=== PATIENT | female | born 1965 | race Caucasian/White ===

== ENCOUNTER → 2017-02-20 | Outpatient (CLI) | payer OTHER ==
--- NOTE | 2017-02-20 14:27 | MM ---
Reason for exam: clinical finding. History: Benign cyst aspiration of both breasts. Indicated problem(s): lump or thickening in the right breast. Physical Findings: Nurse Summary: 2cm nodule in the right breast at 10 o'clock (nurse quang). MG Diagnostic Mammo w CAD ELVI Bilateral CC and MLO view(s) were taken. LM, spot compression MLO, and spot compression CC view(s) were taken of the left breast. The breast tissue is heterogeneously dense. This may lower the sensitivity of mammography. Finding: There is a 21 mm round mass in the upper outer quadrant, middle position of the right breast. Questionable obscured nodularity in the left upper outer quadrant. These results were verbally communicated with the patient and result sheet given to the patient on 02/20/17. ASSESSMENT: Incomplete: need additional imaging evaluation, BI-RAD 0 RECOMMENDATION: Ultrasound of both breasts. (Addendum will follow once outside images arrive from outside facility).
--- NOTE | 2017-02-20 14:37 | USB ---
Reason for exam: additional evaluation requested from abnormal screening. History: Benign cyst aspiration of both breasts. US Breast Limited BILAT Right breast ultrasound demonstrates a 3 x 3 x 2mm oval lesion too small to characterize at 9 o'clock, a 7 x 6 x 11mm lobular, cystic lesion, duct ectasia, questionable duct cluster at 10 o'clock for which an aspiration and/or biopsy is recommended, peripheral curvilinear debris or solid component, a 20 x 18 x 18mm oval, cystic lesion at 11 o'clock and 11mm lymph nodes at the axilla tail. Left breast ultrasound demonstrates a 9 x 6 x 9mm oval, cystic lesion at 2 o'clock, a 8 x 6 x 9mm oval, cystic lesion at 2 o'clock, a 11 x 6 x 9mm lobular , cystic lesion at 3 o'clock, a 6 x 4 x 6mm lobular, cystic lesion at 2 o'clock and a 12mm node at the axilla tail. These results were verbally communicated with the patient and result sheet given to the patient on 02/20/17. ASSESSMENT: Suspicious, BI-RAD 4 RECOMMENDATION: Ultrasound core FNA +/- biopsy of the right breast. (Addendum will follow once outside images arrive from outside facility). (FNA/ +/- core-- 2 sites right breast) Called Dr. Higuera with mammographic findings and has scheduled an appointment for the patient for 03/06/17 at 9:[address] Woodward. PRELIMINARY REPORT CALLED AND FAXED TO DR. WOODWARD ON 02/20/17 /DEBRA. JEREMÍAS
== END | disposition home or self-care (01) ==
LOC: RADMAMWWP 08:11
PROVIDERS: ATTEND Family Medicine
DX: N63 Unspecified lump in breast (principal); Z87.898 Personal history of other specified conditions
CPT/HCPCS: 76642; G0204

== ENCOUNTER → 2017-06-13 | Outpatient (CLI) | payer OTHER ==
--- NOTE | 2017-06-13 14:43 | MR ---
EXAMINATION TYPE: MR brain wo/w con DATE OF EXAM: 06/13/2017 COMPARISON: NONE HISTORY: HX of Meningoioma, history of fall CONTRAST: Performed utilizing 7.5 mL intravenous Gadavist gadolinium contrast. TECHNIQUE: Multiplanar, multiecho imaging on a 3.0 [place] magnet is performed through the brain. Stud y is performed within 24 hours of arrival to the hospital. The craniovertebral junction is normal. The pituitary is normal. Diffusion-weighted imaging is performed. No abnormal hyperintensity is present to suggest an acute i ntracranial infarct or acute ischemic change. No discrete masses are evident. Patient's reported meningioma is not identified. The patient is posts urgical. Previous dural thickening contains some mild enhancement but is less thick than the previous examination. Ventricles and sulci are appropriate for the patient age. IMPRESSIONS: 1. Findings compatible with postsurgical change and resolving postsurgical findings. No recurrent mas s or metastatic disease is evident.
--- NOTE | 2017-06-13 14:46 | XR ---
EXAMINATION TYPE: XR chest 2V DATE OF EXAM: 06/13/2017 COMPARISON: NONE TECHNIQUE: PA and lateral views submitted. HISTORY: Pain FINDINGS: The lungs are clear and there is no pneumothorax, pleural effusion, or focal pneumonia. Surgical cl ips in the gallbladder fossa noted. IMPRESSION: 1. No acute process.
== END ==
LOC: RADMRIMAIN 13:57
PROVIDERS: ATTEND Family Medicine
DX: M45.6 Ankylosing spondylitis lumbar region (principal); Z91.81 History of falling; Z86.011 Personal history of benign neoplasm of the brain
CPT/HCPCS: 71046; 70553; A9581

== ENCOUNTER 2017-08-01 15:12 | Observation (INO) | payer OTHER ==
[2017-08-01 15:50] LABS: Appearance,Urine Clear (Clear); Bilirubin,Urine Negative (Negative); Blood,Urine Negative (Negative); Color,Urine Light Yellow; Glucose,Urine (UA) Negative (Negative); Ketones,Urine Negative (Negative); Leukocyte Esterase,Urine Negative (Negative); Protein,Urine Negative (Negative); Specific Gravity,Urine 1.004 (1.001-1.035); Urobilinogen,Urine <2.0 mg/dL (<2.0)
[2017-08-01 15:54] LABS: Basophils % (A) 1 %; Eosinophils # (A) 0.1 k/uL (0-0.7); Eosinophils % (A) 1 %; HCT 46.4 % (34.0-46.0); HGB 15.4 gm/dL (11.4-16.0); Lymphocytes # (A) 1.8 k/uL (1.0-4.8); Lymphocytes % (A) 25 %; MCH 31.6 pg (25.0-35.0); MCHC 33.2 g/dL (31.0-37.0); MCV 95.2 fL (80.0-100.0); Mean Platelet Volume 8.3; Monocytes # (A) 0.4 k/uL (0-1.0); Monocytes % (A) 5 %; Neutrophils % (A) 68 %; Platelet Count 210 k/uL (150-450); RBC 4.87 m/uL (3.80-5.40); RDW 13.1 % (11.5-15.5); WBC 7.4 k/uL (3.8-10.6)
[2017-08-01 15:59] LABS: ALT 27 U/L (9-52); AST 24 U/L (14-36); Albumin 3.6 g/dL (3.5-5.0); Alkaline Phosphatase 53 U/L (38-126); Anion Gap 9 mmol/L; Blood Urea Nitrogen 11 mg/dL (7-17); Calcium 9.2 mg/dL (8.4-10.2); Carbon Dioxide 27 mmol/L (22-30); Chloride 107 mmol/L (98-107); Creatine Kinase 46 U/L (30-135); Glucose 89 mg/dL (74-99); Potassium 4.3 mmol/L (3.5-5.1); Sodium 143 mmol/L (137-145); Total Bilirubin 0.2 mg/dL (0.2-1.3); Total Protein 5.9 g/dL (6.3-8.2)
[2017-08-01 16:00] LABS: Partial Thromboplastin Time 22.8 sec (22.0-30.0); Prothrombin Time 9.7 sec (9.0-12.0)
[2017-08-01 16:13] LABS: Creatine Kinase MB 0.4 ng/mL (0.0-2.4); Troponin I <0.012 ng/mL (0.000-0.034)
--- NOTE | 2017-08-01 16:14 | ED ---
General Adult HPI - General Chief complaint: Syncope Stated complaint: HEAD INJURY, MULTIPLE FALLS Time Seen by Provider: 08/01/17 15:44 Source: patient, family, RN notes reviewed, old records reviewed Mode of arrival: wheelchair Limitations: no limitations - History of Present Illness Initial comments: 52-year-old female presents with chief complaint syncopal episodes and fall. Patient had 2 episodes of syncope yesterday, she did hit her left forehead with one of these episodes. She is uncertain how long she was unconscious. She's been having syncopal episodes over the past month. She has remote history of meningioma status post resection approximately 4 years ago. She is currently not on any anticoagulation. Patient denies any preceding chest pain or palpitations. Denies abdominal pain nausea vomiting or diarrhea. Denies fever. Patient states she has felt foggy over the past several months. Denies any focal weakness. She complains of bilateral hand paresthesias. - Related Data Home Medications Medication Instructions Recorded Confirmed Citalopram Hydrobromide [Celexa 20 mg PO BID 08/01/17 08/01/17 Oral Soln] Rizatriptan Benzoate [Maxalt FITTER PLACER] 5 mg PO DAILY PRN 08/01/17 08/01/17 Allergies Allergy/AdvReac Type Severity Reaction Status Date / Time latex Allergy Swelling Verified 08/01/17 16:03 Review of Systems ROS Statement: Those systems with pertinent positive or pertinent negative responses have been documented in the HPI. ROS Other: All systems not noted in ROS Statement are negative. Past Medical History Past Medical History: No Reported History History of Any Multi-Drug Resistant Organisms: None Reported Past Surgical History: Cholecystectomy, Tonsillectomy Additional Past Surgical History / Comment(s): brain surgery- tumor removed Past Psychological History: Anxiety, Depression Smoking Status: Current every day smoker Past Alcohol Use History: None Reported Past Drug Use History: None Reported General Exam Limitations: no limitations General appearance: alert, in no apparent distress Head exam: Present: normocephalic. Absent: atraumatic (Ecchymosis and swelling over the left lateral orbital ridge) Eye exam: Present: normal appearance, PERRL. Absent: EOMI Neck exam: Present: normal inspection. Absent: tenderness, meningismus Respiratory exam: Present: normal lung sounds bilaterally. Absent: respiratory distress Cardiovascular Exam: Present: regular rate, normal rhythm GI/Abdominal exam: Present: soft. Absent: distended, tenderness, guarding Extremities exam: Present: normal inspection, normal capillary refill. Absent: pedal edema Neurological exam: Present: alert, oriented X3, CN II-XII intact. Absent: motor sensory deficit Psychiatric exam: Present: flat affect Skin exam: Present: warm, dry, intact. Absent: cyanosis, diaphoretic Course Vital Signs 08/01/17 08/01/17 15:15 15:44 Temperature 98.4 F Pulse Rate 74 65 Respiratory 18 18 Rate Blood Pressure 112/58 109/65 O2 Sat by Pulse 100 98 Oximetry EKG Findings - EKG Comments: EKG Findings:: EKG shows normal sinus rhythm, ventricular rate 68, MN interval 124, qrs 84, QTC 444 no signs of ischemia. Medical Decision Making - Medical Decision Making 52-year-old female with generalized weakness and recurrent syncopal episodes. Patient also complains of some mental fogginess. She is scheduled to see a neurologist. EKG is normal sinus with no ischemic changes. CBC and CMP are unremarkable. Urinalysis is clean. Chest x-ray negative for acute findings. Head CT shows postoperative changes with no acute findings. Patient will placed in observation for cardiology and neurology to evaluate. - Lab Data Result diagrams: 08/01/17 15:28 08/01/17 15:28 Lab Results 08/01/17 08/01/17 08/01/17 Range/Units 15:28 15:28 15:28 WBC 7.4 (3.8-10.6) k/uL RBC 4.87 (3.80-5.40) m/uL Hgb 15.4 (11.4-16.0) gm/dL Hct 46.4 H (34.0-46.0) % MCV 95.2 (80.0-100.0) fL MCH 31.6 (25.0-35.0) pg MCHC 33.2 (31.0-37.0) g/dL RDW 13.1 (11.5-15.5) % Plt Count 210 (150-450) k/uL Neutrophils % 68 % Lymphocytes % 25 % Monocytes % 5 % Eosinophils % 1 % Basophils % 1 % Neutrophils # 5.0 (1.3-7.7) k/uL Lymphocytes # 1.8 (1.0-4.8) k/uL Monocytes # 0.4 (0-1.0) k/uL Eosinophils # 0.1 (0-0.7) k/uL Basophils # 0.0 (0-0.2) k/uL PT (9.0-12.0) sec INR (<1.2) APTT (22.0-30.0) sec Sodium 143 (137-145) mmol/L Potassium 4.3 (3.5-5.1) mmol/L Chloride 107 (98-107) mmol/L Carbon Dioxide 27 (22-30) mmol/L Anion Gap 9 mmol/L BUN 11 (7-17) mg/dL Creatinine 0.70 (0.52-1.04) mg/dL Est GFR (MDRD) Af Amer >60 (>60 ml/min/1.73 sqM) Est GFR (MDRD) Non-Af >60 (>60 ml/min/1.73 sqM) Glucose 89 (74-99) mg/dL Calcium 9.2 (8.4-10.2) mg/dL Magnesium (1.6-2.3) mg/dL Total Bilirubin 0.2 (0.2-1.3) mg/dL AST 24 (14-36) U/L ALT 27 (9-52) U/L Alkaline Phosphatase 53 (38-126) U/L Total Creatine Kinase 46 (30-135) U/L CK-MB (CK-2) 0.4 (0.0-2.4) ng/mL CK-MB (CK-2) Rel Index 0.9 Troponin I <0.012 (0.000-0.034) ng/mL Total Protein 5.9 L (6.3-8.2) g/dL Albumin 3.6 (3.5-5.0) g/dL Urine Color Urine Appearance (Clear) Urine pH (5.0-8.0) Ur Specific Orick (1.001-1.035) Urine Protein (Negative) Urine Glucose (UA) (Negative) Urine Ketones (Negative) Urine Blood (Negative) Urine Nitrite (Negative) Urine Bilirubin (Negative) Urine Urobilinogen (<2.0) mg/dL Ur Leukocyte Esterase (Negative) Urine Opiates Screen (NotDetected) Ur Oxycodone Screen (NotDetected) Urine Methadone Screen (NotDetected) Ur Propoxyphene Screen (NotDetected) Ur Barbiturates Screen (NotDetected) U Tricyclic Antidepress (NotDetected) Ur Phencyclidine Scrn (NotDetected) Ur Amphetamines Screen (NotDetected) U Methamphetamines Scrn (NotDetected) U Benzodiazepines Scrn (NotDetected) Urine Cocaine Screen (NotDetected) U Marijuana (THC) Screen (NotDetected) 08/01/17 08/01/17 08/01/17 Range/Units 15:28 15:28 15:28 WBC (3.8-10.6) k/uL RBC (3.80-5.40) m/uL Hgb (11.4-16.0) gm/dL Hct (34.0-46.0) % MCV (80.0-100.0) fL MCH (25.0-35.0) pg MCHC (31.0-37.0) g/dL RDW (11.5-15.5) % Plt Count (150-450) k/uL Neutrophils % % Lymphocytes % % Monocytes % % Eosinophils % % Basophils % % Neutrophils # (1.3-7.7) k/uL Lymphocytes # (1.0-4.8) k/uL Monocytes # (0-1.0) k/uL Eosinophils # (0-0.7) k/uL Basophils # (0-0.2) k/uL PT 9.7 (9.0-12.0) sec INR 1.0 (<1.2) APTT 22.8 (22.0-30.0) sec Sodium (137-145) mmol/L Potassium (3.5-5.1) mmol/L Chloride (98-107) mmol/L Carbon Dioxide (22-30) mmol/L Anion Gap mmol/L BUN (7-17) mg/dL Creatinine (0.52-1.04) mg/dL Est GFR (MDRD) Af Amer (>60 ml/min/1.73 sqM) Est GFR (MDRD) Non-Af (>60 ml/min/1.73 sqM) Glucose (74-99) mg/dL Calcium (8.4-10.2) mg/dL Magnesium 2.0 (1.6-2.3) mg/dL Total Bilirubin (0.2-1.3) mg/dL AST (14-36) U/L ALT (9-52) U/L Alkaline Phosphatase (38-126) U/L Total Creatine Kinase (30-135) U/L CK-MB (CK-2) (0.0-2.4) ng/mL CK-MB (CK-2) Rel Index Troponin I (0.000-0.034) ng/mL Total Protein (6.3-8.2) g/dL Albumin (3.5-5.0) g/dL Urine Color Light Yellow Urine Appearance Clear (Clear) Urine pH 8.0 (5.0-8.0) Ur Specific Orick 1.004 (1.001-1.035) Urine Protein Negative (Negative) Urine Glucose (UA) Negative (Negative) Urine Ketones Negative (Negative) Urine Blood Negative (Negative) Urine Nitrite Negative (Negative) Urine Bilirubin Negative (Negative) Urine Urobilinogen <2.0 (<2.0) mg/dL Ur Leukocyte Esterase Negative (Negative) Urine Opiates Screen (NotDetected) Ur Oxycodone Screen (NotDetected) Urine Methadone Screen (NotDetected) Ur Propoxyphene Screen (NotDetected) Ur Barbiturates Screen (NotDetected) U Tricyclic Antidepress (NotDetected) Ur Phencyclidine Scrn (NotDetected) Ur Amphetamines Screen (NotDetected) U Methamphetamines Scrn (NotDetected) U Benzodiazepines Scrn (NotDetected) Urine Cocaine Screen (NotDetected) U Marijuana (THC) Screen (NotDetected) 08/01/17 Range/Units 15:30 WBC (3.8-10.6) k/uL RBC (3.80-5.40) m/uL Hgb (11.4-16.0) gm/dL Hct (34.0-46.0) % MCV (80.0-100.0) fL MCH (25.0-35.0) pg MCHC (31.0-37.0) g/dL RDW (11.5-15.5) % Plt Count (150-450) k/uL Neutrophils % % Lymphocytes % % Monocytes % % Eosinophils % % Basophils % % Neutrophils # (1.3-7.7) k/uL Lymphocytes # (1.0-4.8) k/uL Monocytes # (0-1.0) k/uL Eosinophils # (0-0.7) k/uL Basophils # (0-0.2) k/uL PT (9.0-12.0) sec INR (<1.2) APTT (22.0-30.0) sec Sodium (137-145) mmol/L Potassium (3.5-5.1) mmol/L Chloride (98-107) mmol/L Carbon Dioxide (22-30) mmol/L Anion Gap mmol/L BUN (7-17) mg/dL Creatinine (0.52-1.04) mg/dL Est GFR (MDRD) Af Amer (>60 ml/min/1.73 sqM) Est GFR (MDRD) Non-Af (>60 ml/min/1.73 sqM) Glucose (74-99) mg/dL Calcium (8.4-10.2) mg/dL Magnesium (1.6-2.3) mg/dL Total Bilirubin (0.2-1.3) mg/dL AST (14-36) U/L ALT (9-52) U/L Alkaline Phosphatase (38-126) U/L Total Creatine Kinase (30-135) U/L CK-MB (CK-2) (0.0-2.4) ng/mL CK-MB (CK-2) Rel Index Troponin I (0.000-0.034) ng/mL Total Protein (6.3-8.2) g/dL Albumin (3.5-5.0) g/dL Urine Color Urine Appearance (Clear) Urine pH (5.0-8.0) Ur Specific Orick (1.001-1.035) Urine Protein (Negative) Urine Glucose (UA) (Negative) Urine Ketones (Negative) Urine Blood (Negative) Urine Nitrite (Negative) Urine Bilirubin (Negative) Urine Urobilinogen (<2.0) mg/dL Ur Leukocyte Esterase (Negative) Urine Opiates Screen Not Detected (NotDetected) Ur Oxycodone Screen Not Detected (NotDetected) Urine Methadone Screen Not Detected (NotDetected) Ur Propoxyphene Screen Not Detected (NotDetected) Ur Barbiturates Screen Not Detected (NotDetected) U Tricyclic Antidepress Not Detected (NotDetected) Ur Phencyclidine Scrn Not Detected (NotDetected) Ur Amphetamines Screen Not Detected (NotDetected) U Methamphetamines Scrn Not Detected (NotDetected) U Benzodiazepines Scrn Not Detected (NotDetected) Urine Cocaine Screen Not Detected (NotDetected) U Marijuana (THC) Screen Not Detected (NotDetected) Disposition Clinical Impression: Syncope and collapse Disposition: ADMITTED IP TO THIS HOSP Condition: Stable Referrals: Cat Higuera MD [Primary Care Provider] - 1-2 days Decision to Admit Reason: Admit from EC Decision Date: 08/01/17 Decision Time: 17:08
[2017-08-01 16:30] LABS: Cocaine Screen,Urine Not Detected (NotDetected); Phencyclidine Screen,Urine Not Detected (NotDetected); Urn Cannabinoid Scrn Not Detected (NotDetected)
[2017-08-01 16:31] LABS: Amphetamine Screen,Urine Not Detected (NotDetected); Barbiturate Screen,Urine Not Detected (NotDetected); Benzodiazepines Screen,Urine Not Detected (NotDetected); Methadone Screen, Urine Not Detected (NotDetected); Opiate Screen,Urine Not Detected (NotDetected); Oxycodone Screen, Urine Not Detected (NotDetected); Tricyclic Antidepressant,Urine Not Detected (NotDetected)
--- NOTE | 2017-08-01 16:36 | CT ---
EXAMINATION TYPE: CT brain wo con DATE OF EXAM: 08/01/2017 COMPARISON: NONE HISTORY: Patient complains of repeated syncopal falls. CT DLP: 794.2 mGycm Automated exposure control for dose reduction was used. Helical acquisition through the brain FINDINGS: Posterior calvarium shows postop change, there is a flap which shows a normal position. There is no h emorrhage or hydrocephalus present. Paranasal sinuses and mastoid air cells as visualized are normal. The orbits show a symmetric appearance as visualized. IMPRESSION: POSTOP CHANGES. NO ACUTE ABNORMALITIES EVIDENT.
--- NOTE | 2017-08-01 16:38 | XR ---
EXAMINATION TYPE: XR chest 2V DATE OF EXAM: 08/01/2017 COMPARISON: Prior chest x-ray 06/13/2017 HISTORY: Syncope and confusion TECHNIQUE: Frontal and lateral views of the chest are obtained. FINDINGS: There is no focal air space opacity, pleural effusion, or pneumothorax seen. The cardiac silhouette size is within normal limits. The osseous structures are intact. Surgical clips in the r ight upper quadrant. Overlying cardiac leads. IMPRESSION: No acute cardiopulmonary process.
[2017-08-01] MEDS ORDERED: NALOXONE 0.4 MG/ML 1 ML VIAL IV PRN (16:52)
[2017-08-01] MEDS ORDERED: ACETAMINOPHEN TAB 325 MG TAB PO PRN (16:52)
[2017-08-01] MEDS: SODIUM CHLORIDE 0.9% 1,000 ML IV SCH (17:27)
[2017-08-01] MEDS ORDERED: SUMAtriptan SUCCINATE 50 MG TAB PO PRN (19:48)
[2017-08-01] MEDS ORDERED: ALPRAZolam 0.25 MG TAB PO PRN (19:49)
[2017-08-01] MEDS ORDERED: TEMAZEPAM 15 MG CAP PO PRN (19:49)
[2017-08-01] MEDS ORDERED: HYDROcodone/APAP 5-325MG 1 EACH TAB PO PRN (19:49)
--- NOTE | 2017-08-01 20:57 | HP ---
HISTORY AND PHYSICAL CHIEF COMPLAINT: Syncope and head injury. HISTORY OF PRESENT ILLNESS: This 52-year-old woman with a past medical history of multiple medical problems including tonsillectomy, cholecystectomy, brain surgery and meningioma removal, anxiety, depression, being followed by in the outpatient setting, apparently had multiple episodes of fall. The patient at least two episodes of syncope yesterday. The patient felt dizzy and subsequently patient passed out. Tunnel vision was also noted. The patient came to [facility] and was admitted for further evaluation. The patient does not remember how long the patient was unconscious. The patient had meningioma surgery 4 years ago. There is no history of any fevers or rigors. No history of chest pain or palpitations, hematochezia, melena at this time. PAST MEDICAL HISTORY: Cholecystectomy, tonsillectomy, anxiety, depression. MEDICATIONS: Home medications: 1. Maxalt 5 mg daily p.r.n. 2. Celexa 20 mg b.i.d. ALLERGIES: LATEX. FAMILY HISTORY: No history of heart disease or strokes in the family. SOCIAL HISTORY: No history of smoking, no history of alcohol. REVIEW OF SYSTEMS: ENT: No diminished hearing or vision. CARDIOVASCULAR: No angina. RESPIRATORY: No cough or hemoptysis. GI: No nausea. : No dysuria. NERVOUS SYSTEM: As mentioned. MUSCULOSKELETAL: As mentioned earlier. HEMATOLOGY/ONCOLOGY: No history of anemia. ENDOCRINE: No history of diabetes or hypothyroidism. CONSTITUTIONAL: As mentioned. DERMATOLOGIC: As mentioned. PSYCHIATRY: As mentioned. PHYSICAL EXAMINATION: Alert, oriented x3. Pulse 62, blood pressure 103/56, respirations 18, temperature 97.9, pulse ox 98% on room air. HEENT: Conjunctivae normal. NECK: No JVD. CARDIOVASCULAR: S1 and S2 muffled. LUNGS: Breath sounds diminished at the bases. No rhonchi. No crackles. ABDOMEN: Soft, nontender. No mass. LEGS: No edema. NERVOUS SYSTEM: Higher functions as mentioned earlier. Moves all four limbs. LYMPHATICS: No lymph nodes palpable in the neck, axillae, or groin. SKIN: No ulcer. LABS: CBC and BMP within normal limits. ASSESSMENT: 1. Syncope for further evaluation, possible orthostatic hypotension. 2. Rule out cardiac cath. 3. History of cholecystectomy. 4. History of tonsillectomy. 5. History of brain surgery and meningioma removal. 6. Anxiety and depression. 7. History of nicotine dependence. RECOMMENDATIONS AND DISCUSSION: This 52-year-old woman who presented with multiple complex medical issues, we will monitor the patient closely. Continue the current management and symptomatic treatment. We will obtain neurology and cardiology consultations. Otherwise resume the home medication. Orthostatic vitals. The patient is on Maxalt and Celexa. We will continue to monitor. Otherwise, we will closely monitor. Prognosis guarded because of multiple complex medical issues. Further recommendations to follow. We will also obtain neurovascular workup. Also recommend the patient followup with Caitie Santoro closely. MMODL / IJN: [id number] / JEREMÍAS
[2017-08-01] MEDS ORDERED: CITALOPRAM HYDROBROMIDE 20 MG TAB PO SCH (21:00)
[2017-08-01] MEDS: HEPARIN SODIUM,PORCINE 5,000 UNIT/ML 1 ML VIAL SQ SCH (22:03)
--- NOTE | 2017-08-01 22:17 | US ---
EXAMINATION TYPE: US carotid duplex BILAT DATE OF EXAM: 08/01/2017 COMPARISON: NONE CLINICAL HISTORY: syncope. Syncope EXAM MEASUREMENTS: RIGHT: Peak Systolic Velocity (PSV) cm/sec ----- Right CCA: 100.2 ----- Right ICA: 98.2 ----- Right ECA: 85.3 ICA/CCA ratio: 1.0 RIGHT: End Diastole cm/sec ----- Right CCA: 24.6 ----- Right ICA: 30.9 ----- Right ECA: 12.8 LEFT: Peak Systolic Velocity (PSV) cm/sec ----- Left CCA: 104.6 ----- Left ICA: 110.4 ----- Left ECA: 92.9 ICA/CCA ratio: 1.1 LEFT: End Diastole cm/sec ----- Left CCA: 28.9 ----- Left ICA: 28.9 ----- Left ECA: 11.5 VERTEBRALS (direction of flow): Right Vertebral: Antegrade Left Vertebral: Antegrade Rhythm: Normal IMPRESSION: 1. MINIMAL PLAQUE BILATERAL BIFURCATIONS. 2. NO EVIDENCE OF INCREASED VELOCITIES; NEGATIVE FOR SIGNIFICANT STENOSIS.
[2017-08-01 22:43] VITALS: BMI 27.3
[2017-08-02] MEDS ORDERED: PANTOPRAZOLE 40 MG TABLET PO SCH (07:30)
[2017-08-02 07:45] LABS: Basophils % (A) 1 %; Eosinophils # (A) 0.1 k/uL (0-0.7); Eosinophils % (A) 3 %; HCT 40.8 % (34.0-46.0); HGB 12.6 gm/dL (11.4-16.0); Lymphocytes % (A) 34 %; MCH 30.3 pg (25.0-35.0); MCHC 30.9 g/dL (31.0-37.0); MCV 98.2 fL (80.0-100.0); Monocytes # (A) 0.3 k/uL (0-1.0); Monocytes % (A) 6 %; Neutrophils # (A) 3.2 k/uL (1.3-7.7); Neutrophils % (A) 55 %; Platelet Count 184 k/uL (150-450); RBC 4.15 m/uL (3.80-5.40); RDW 13.3 % (11.5-15.5); WBC 5.8 k/uL (3.8-10.6)
[2017-08-02 08:16] LABS: Anion Gap 5 mmol/L; Blood Urea Nitrogen 12 mg/dL (7-17); Calcium 8.2 mg/dL (8.4-10.2); Carbon Dioxide 25 mmol/L (22-30); Chloride 111 mmol/L (98-107); Glucose 77 mg/dL (74-99); Potassium 4.2 mmol/L (3.5-5.1); Sodium 141 mmol/L (137-145)
[2017-08-02] MEDS: SODIUM CHLORIDE 0.9% 1,000 ML IV SCH ×3 (09:09→19:48)
[2017-08-02] MEDS: CITALOPRAM 10 MG/5 ML PO SCH ×2 (09:22→19:48)
[2017-08-02] MEDS: HEPARIN SODIUM,PORCINE 5,000 UNIT/ML 1 ML VIAL SQ SCH ×2 (09:23→19:48)
[2017-08-02] MEDS: ACET/COD 240MG/24MG LIQ 10 ML SYRG PO PRN ×2 (11:29→18:03)
[2017-08-02] MEDS ORDERED: MECLIZINE 25 MG TAB PO PRN (14:02)
--- NOTE | 2017-08-02 16:19 | P.CNNES ---
History of Present Illness Consult date: 08/02/17 Requesting physician: Ugo Mota Reason for Consult: Syncope History of Present Illness: Patient is a pleasant 52-year-old female who is being evaluated by the neurology service on 08/02/2017 per the request of Dr. Mota for syncope. Patient has a history of resection of benign meningioma approximately 4 years ago. Patient also has history of headaches, anxiety and depression. Patient states she is unable to take any oral medication due to trauma to the oral pharynx in the past. She takes sublingual or dissolving medication at home. Patient states she's had multiple episodes of syncope over the last month and a half. Patient reports tunnel vision, diaphoresis, and dizziness with episodes. Vasovagal reaction may be in the differential diagnosis. No seizure-like activity is described. No post ictal state is reported. Patient denies any lateralizing weakness. Patient states following the syncopal episode she is able to reorient and go on with which she was doing. Computed tomography scan was negative for any acute process but did show previous surgical site. Carotid Dopplers were negative for any hemodynamically significant stenosis. Vital signs are stable on admission with a temperature of 98.4 respiratory rate 18 blood pressure 112/58 and oxygen saturation 100% on room air. Labs on admission are essentially unremarkable. Urine drug screen negative for any abnormality. At the time of my evaluation, patient is resting comfortably in bed and appears to be in no acute distress. Review of Systems REVIEW OF SYSTEMS: Otherwise unremarkable and noncontributory. Past Medical History Past Medical History: No Reported History History of Any Multi-Drug Resistant Organisms: None Reported Past Surgical History: Cholecystectomy, Tonsillectomy, Tubal Ligation Additional Past Surgical History / Comment(s): brain surgery- tumor removed Past Psychological History: Anxiety, Depression Smoking Status: Current every day smoker Past Alcohol Use History: None Reported Past Drug Use History: None Reported Medications and Allergies Home Medications Medication Instructions Recorded Confirmed Type Citalopram Hydrobromide [Celexa 20 mg PO BID 08/01/17 08/01/17 History Oral Soln] Rizatriptan Benzoate [Maxalt [employer]ISTRATOR] 5 mg PO DAILY PRN 08/01/17 08/01/17 History Allergies Allergy/AdvReac Type Severity Reaction Status Date / Time latex Allergy Swelling Verified 08/01/17 16:03 Physical Examination - Vital Signs Vital Signs: Vital Signs Temp Pulse Pulse Pulse Pulse Pulse Pulse 08/02/17 12:00 97.8 F 58 L 08/02/17 08:00 98.3 F 64 08/02/17 04:30 97.5 F L 69 08/02/17 04:00 08/02/17 00:00 08/01/17 23:46 98.2 F 66 08/01/17 20:00 08/01/17 19:41 97.9 F 62 70 76 62 08/01/17 18:35 62 08/01/17 17:31 97 F L 57 L Resp BP BP BP BP Pulse Ox 08/02/17 12:00 14 95/58 96 08/02/17 08:00 14 109/57 97 08/02/17 04:30 15 98/57 97 08/02/17 04:00 17 08/02/17 00:00 17 08/01/17 23:46 17 91/55 95 08/01/17 20:00 17 08/01/17 19:41 18 105/56 110/58 08/01/17 18:35 18 109/67 98 08/01/17 17:31 16 102/61 98 Intake and Output 08/02/17 08/02/17 08/02/17 06:59 14:59 22:59 Other: Voiding Method Toilet Toilet Toilet # Voids 1 1 Weight 81.647 kg PHYSICAL EXAM: GENERAL APPEARANCE: Patient is a well-developed, female who appears to be in no acute distress. HEENT: Normocephalic, atraumatic, no facial asymmetry is seen. Neck is supple with no masses felt. CARDIOVASCULAR: Regular rate and rhythm. ABDOMEN: Nontender, nondistended. EXTREMITIES: Show no edema or clubbing. NEUROLOGICAL EXAM: Patient is awake, alert, and oriented 3. Speech and language are normal. Strength is full in all 4 extremities. Sensory exam is normal to light touch in all 4 extremities. No facial asymmetry is seen on cranial nerve testing. Patient has significant occipital neuritis on the right. No tremors or seizure-like activity is noted. Results - Laboratory Findings CBC and BMP: 08/02/17 06:16 08/02/17 06:16 Abnormal Lab Findings: Abnormal Labs 08/01/17 08/01/17 08/02/17 15:28 15:28 06:16 Hct 46.4 H MCHC 30.9 L Chloride Calcium Total Protein 5.9 L 08/02/17 06:16 Hct MCHC Chloride 111 H Calcium 8.2 L Total Protein Assessment and Plan Plan: Impression: 1. Syncope 2. Headaches 3. History of resection of benign meningioma 4. Depression Recommendation: Patient's syncopal episodes do not appear to be neurological. I recommend a cardiovascular workup as an outpatient to evaluate for contributing etiology. She may need a tilt table test. As far as her headaches go, she may benefit from a greater occipital nerve block as an outpatient. Patient reports relief of headache with liquid Tylenol with codeine. As mentioned above, computed tomography scan of the brain was negative for any acute process. Carotid Dopplers were negative for any hemodynamically significant stenosis. I would be happy to see patient in the outpatient setting and further workup her headaches. Patient is stable from a neurological standpoint for discharge. Thank you for allowing me to participate in the care of your patient. Feel free to call with any questions or concerns. I performed an examination of the patient and discussed the management with the HEAD CAGER. I have reviewed the HEAD CAGER notes and agree with the findings and plan of care.
--- NOTE | 2017-08-02 16:55 | CONS ---
CONSULTATION This is a 52-year-old lady who has been admitted to the hospital with episode of syncope/seizure. This lady apparently moved to this area and used to be in the [facility] before. In the last 3 weeks, according to her fiance who was here, she has fallen 3 times spontaneously and loses consciousness very briefly and comes and wakes up. She also has a history of meningioma and underwent surgery for intracranial meningioma 4 years ago. She has had some passing-out spells even before that. This visit to the hospital is because she suddenly felt foggy and weak and felt disoriented and then had an episode of passing out. She has not hurt herself. She has not lost any control of bladder or bowel. She carries a diagnosis of depression and also takes some medications for headache. At the time of my evaluation, she answers questions. Denies chest pain, has no palpitations. Her syncopal episode history is rather sketchy, most of it is being given by her fiance. PAST MEDICAL HISTORY: Four years ago she had intracranial meningioma for which she had surgery at [facility]. Details are unclear. She has underlying depression. No evidence of any hypertension, diabetes, myocardial infarction or CVA. She is status post cholecystectomy and tonsillectomy. SOCIAL HISTORY: She smokes 1 to 1-1/2 packs daily. Does not consume alcohol or other recreational drugs. MEDICATIONS: At home include Celexa and Maxalt. ALLERGIES: She has no known drug allergies. EXAMINATION: Blood pressure is 110/70, pulse rate is 68 per minute and regular. HEENT unremarkable. Fundus was not examined by me. Neck is supple. There is no JVD. I do not hear a carotid bruit. Heart exam reveals S1, S2 heard normally. There is no significant murmur, rub, or gallop. Lungs are clear. Abdomen is soft, nontender. Lower extremities reveal diminished pulses. No edema. Central nervous system is normal. EKG revealed sinus mechanism, no acute changes. LABORATORY DATA: Revealed no significant abnormalities. Her troponin levels are normal. Her D-dimer was also advised and that is also normal. IMPRESSION: 1. Syncope. The details are rather sketchy. Cannot rule out underlying seizure disorder, especially with a history of intracranial meningioma for which she had surgery 4 years ago. 2. Status post surgical excision of intracranial meningioma 4 years ago. 3. Depression. 4. Persistent headaches. RECOMMENDATIONS: I am recommending that we will continue telemetry. Check an echocardiogram to assess LV function. Carotid Doppler did not reveal any significant abnormality. Based on her clinical course, I will make further recommendations. She may also require an event monitor down the road. Discussed my thoughts in detail with the patient and her fiance. NUNU / MILANAN: [id number] /
--- NOTE | 2017-08-02 17:46 | PN ---
PROGRESS NOTE DATE OF SERVICE: 08/02/2017 This 52-year-old woman was admitted with syncope as well as orthostatic hypotension, is complaining of dizzy. At this time, patient also nauseous. Neurology evaluated the patient. No chest pain. No palpitations. No fever. EXAM: Alert and oriented x3. Pulse 64, blood pressure 91/54, respirations 16, temperature 98.2, pulse ox 98% on room air. HEENT: Conjunctivae normal. NECK: No jugular venous distention. CARDIOVASCULAR: S1, S2 muffled. RESPIRATORY: Breath sounds diminished in the bases. No rhonchi. No crackles. ABDOMEN: Soft, nontender. No mass palpable. LEGS: No edema. NERVOUS SYSTEM: No focal deficits. LABS: D-dimer is normal. Otherwise, CBC BMP within normal limits. ASSESSMENT: 1. Syncope for evaluation of possible orthostatic hypotension. 2. History of cholecystectomy. 3. History of tonsillectomy. 4. History of brain surgery, meningioma removal. 5. Anxiety, depression. 6. History of nicotine dependence. 7. Remote history of aspirin ingestion. 8. Dysphagia. RECOMMENDATIONS AND DISCUSSION: Recommend to continue current medical management, monitoring and symptomatic treatment. Otherwise at this time, I would recommend monitoring patient closely. Prognosis guarded. Further recommendations to follow. MMODL / IJN: [id number] /
[2017-08-03 07:31] LABS: Basophils % (A) 1 %; Eosinophils # (A) 0.1 k/uL (0-0.7); Eosinophils % (A) 3 %; HCT 40.8 % (34.0-46.0); HGB 12.8 gm/dL (11.4-16.0); Lymphocytes # (A) 1.8 k/uL (1.0-4.8); Lymphocytes % (A) 39 %; MCH 31.2 pg (25.0-35.0); MCHC 31.4 g/dL (31.0-37.0); MCV 99.1 fL (80.0-100.0); Mean Platelet Volume 8.3; Monocytes # (A) 0.3 k/uL (0-1.0); Monocytes % (A) 7 %; Neutrophils # (A) 2.3 k/uL (1.3-7.7); Neutrophils % (A) 49 %; Platelet Count 191 k/uL (150-450); RBC 4.12 m/uL (3.80-5.40); RDW 13.4 % (11.5-15.5); WBC 4.7 k/uL (3.8-10.6)
[2017-08-03 07:59] LABS: Anion Gap 6 mmol/L; Blood Urea Nitrogen 8 mg/dL (7-17); Calcium 8.5 mg/dL (8.4-10.2); Carbon Dioxide 25 mmol/L (22-30); Chloride 110 mmol/L (98-107); Glucose 83 mg/dL (74-99); Potassium 3.9 mmol/L (3.5-5.1); Sodium 141 mmol/L (137-145)
[2017-08-03] MEDS: CITALOPRAM 10 MG/5 ML PO SCH (08:03)
[2017-08-03] MEDS: ACET/COD 240MG/24MG LIQ 10 ML SYRG PO PRN (08:03)
[2017-08-03] MEDS: HEPARIN SODIUM,PORCINE 5,000 UNIT/ML 1 ML VIAL SQ SCH (08:03)
[2017-08-03 12:18] VITALS: RESP 16; TEMP 98.1
[2017-08-03 12:20] VITALS: BP 104/62; PULSE 62
--- NOTE | 2017-08-03 14:48 | PN ---
PROGRESS NOTE This is a lady who was admitted with syncope. The syncope seems quite questionable. However, she has not had any arrhythmia in nearly 24 hours of monitoring, has not had any symptoms. Her echo revealed normal systolic function. I am recommending that she can be discharged with the understanding she will need a followup with possibly an event monitor as an outpatient. I discussed my thoughts in detail with the patient. Vital signs are stable. There is no JVD or carotid bruit. S1, S2 are heard normally. Lungs are clear. Abdomen and lower exam otherwise was unremarkable. MMODL / IJN: [id number] /
--- NOTE | 2017-08-04 05:01 | ECHOF ---
Referral Reason:syncope MEASUREMENTS -------- HEIGHT: 172.7 cm WEIGHT: 81.6 kg BP: 130/20 RVIDd: 3.0 cm (< 3.3) IVSd: 0.6 cm (0.6 - 1.1) LVIDd: 5.1 cm (3.9 - 5.3) LVPWd: 0.7 cm (0.6 - 1.1) IVSs: 1.2 cm LVIDs: 3.8 cm LVPWs: 1.2 cm LA Diam: 3.1 cm (2.7 - 3.8) LAESV Index (A-L): 31.34 ml/m Ao Diam: 2.6 cm (2.0 - 3.7) AV Cusp: 1.8 cm (1.5 - 2.6) LA Diam: 3.7 cm (2.7 - 3.8) MV EXCURSION: 22.777 mm (> 18.000) MV EF SLOPE: 134 mm/s (70 - 150) EPSS: 0.2 cm MV E Erasmo: 0.63 m/s MV DecT: 201 ms MV A Erasmo: 0.54 m/s MV E/A Ratio: 1.17 RAP: 5.00 mmHg RVSP: 25.11 mmHg FINDINGS -------- Sinus rhythm. This was a technically adequate study. LV size, wall thickness and systolic function are normal, with an EF greater than 55%. The left reji tricular size is normal. The right ventricle is normal in size. LA is midly dilated 29-33ml/m2. The right atrial size is normal. The aortic valve is trileaflet, and appears structurally normal. No aortic stenosis or regurgitation. Mild mitral regurgitation is present. Mild tricuspid regurgitation present. There is no evidence of pulmonary hypertension. The right v entricular systolic pressure, as measured by Doppler, is 25.11mmHg. There is no pulmonic regurgitation present. The aortic root size is normal. There is no pericardial effusion. CONCLUSIONS -------- 1. LV size, wall thickness and systolic function are normal, with an EF greater than 55%. 2. The left ventricular size is normal. 3. LA is midly dilated 29-33ml/m2. 4. The aortic valve is trileaflet, and appears structurally normal. No aortic stenosis or regurgitati on. 5. Mild mitral regurgitation is present. 6. Mild tricuspid regurgitation present. 7. There is no evidence of pulmonary hypertension. 8. The right ventricular systolic pressure, as measured by Doppler, is 25.11mmHg. 9. There is no pulmonic regurgitation present. 10. The aortic root size is normal. 11. There is no pericardial effusion. DELPHI PROGRAMMER: Abbey Bustillos RDCS
--- NOTE | 2017-08-04 10:10 | DS ---
DISCHARGE SUMMARY DATE OF SERVICE: 08/03/2017 FINAL DIAGNOSES: 1. Syncope, possible orthostatic hypotension. 2. History of cholecystectomy. 3. History of tonsillectomy. 4. History of brain surgery, meningioma removal. 5. Anxiety, depression. 6. History of nicotine dependence. 7. Remote history of aspirin ingestion. 8. Dysphagia. DISCHARGE DISPOSITION: The patient will be discharged in stable condition with guarded prognosis. HISTORY OF PRESENT ILLNESS: This 52-year-old woman with a past medical history of multiple medical problems admitted with syncope and multiple other medical issues. This patient was seen by multiple consultants, Neurology and Cardiology. Patient improved significantly. The workup was basically negative. On exam, vitals are stable. CARDIOVASCULAR: S1 and S2 muffled. ABDOMEN: Soft. NERVOUS SYSTEM: No focal deficits. The patient will be discharged in a stable condition with guarded prognosis with the following advice: 1. Diet is cardiac diet. 2. Activity limited until followup. 3. Follow up with Cardiology and Neurology as recommended. 4. Follow up with Dr. Cat Higuera 1 to 2 days. Medications are as follows: 1. Acetaminophen/Codeine p.r.n. 2. Celexa 20 mg b.i.d. 3. Antivert 12.5 mg p.o. b.i.d. p.r.n. 4. Maxalt 5 mg p.o. daily. Once again, the patient will be discharged in a stable stable condition with guarded prognosis. MMODL / IJN: [id number] /
== END 2017-08-03 14:00 | disposition home or self-care (01) ==
LOC: EC 15:12 → 3OBS 16:52
PROVIDERS: ADMIT Hospitalist; ATTEND Hospitalist
DX: R55 Syncope and collapse (principal); Z90.49 Acquired absence of other specified parts of digestive tract; Z86.011 Personal history of benign neoplasm of the brain; F41.9 Anxiety disorder, unspecified; F32.9 Major depressive disorder, single episode, unspecified; S09.90XA Unspecified injury of head, initial encounter; R13.10 Dysphagia, unspecified; R51 Headache; R42 Dizziness and giddiness; R41.0 Disorientation, unspecified; R20.2 Paresthesia of skin; F17.210 Nicotine dependence, cigarettes, uncomplicated; Z79.899 Other long term (current) drug therapy; R29.6 Repeated falls; Z91.040 Latex allergy status; W19.XXXA Unspecified fall, initial encounter
CPT/HCPCS: 99285; 96372 ×3; 36415; 93005; 93306; 85379; 80053; 80048 ×2; 82550; 82553; 83735; 84484 ×2; 85025 ×3; 85610; 85730; 81003; 80306; 71046; 93880; 70450; G0378 ×3; J1644 ×3

== ENCOUNTER → 2017-11-04 | Outpatient (CLI) | payer OTHER ==
--- NOTE | 2017-11-04 15:49 | CT ---
EXAMINATION TYPE: CT angio head neck DATE OF EXAM: 11/04/2017 HISTORY: SYNCOPAL EPISODES X2 MONTHS COMPARISON: Carotid ultrasound August 01, 2017 CT DLP: 1570 mGycm. Automated Exposure Control for Dose Reduction was Utilized. TECHNIQUE: CTA scan of the head and neck are performed with IV Contrast, patient injected with 65 mL of Isovue 370, axial images are obtained, coronal and sagittal reformatted images are reviewed. Thre e-D reconstructed images are created on an independent workstation and reviewed. CT scan of the head is also performed without contrast FINDINGS: Carotid/Vascular Structures: There is normal three-vessel origin from aortic arch. There is no signif icant plaque or stenosis in the arch or visualized portion of subclavian arteries bilaterally. The ri t common carotid artery shows normal origin from right brachiocephalic artery. There is no signific ant plaque or stenosis in the right common or internal carotid arteries including level of carotid bu lb. Slightly tortuous course to the right internal carotid artery is present. There is patent right e xternal carotid artery without significant plaque or stenosis. There is no significant plaque or stenosis in left common or internal carotid arteries including at l evel of left carotid bulb. Tortuous course to left internal carotid artery is also present. There is patent left external carotid artery without significant plaque or stenosis. There is dominant right vertebral artery. Vertebral arteries are patent to basilar junction. There is no significant focal stenosis or interval change in the posterior circulation. There are hypoplastic posterior communicating arteries noted bilaterally. Images of the anterior circulation show no significant stenosis or aneurysmal change. Patent anterior communicating artery is not well seen. Other: Noncontrast CT of the brain shows no acute intracranial hemorrhage or midline shift. Ventricle s and sulci are normal in size. There is left occipital craniotomy defect. The globes are intact and visualized sinuses are clear. There is straightening of spine with mild to moderate spurring and mild disc space narrowing C5-C6 le kathy. IMPRESSION: 1. No significant focal stenosis in common or internal iliac arteries bilaterally. 2. No aneurysmal change at the level of the [place].
--- NOTE | 2017-11-05 15:49 | EEG ---
ELECTROENCEPHALOGRAM REPORT DATE OF EE11/04/2017. REFERRING PHYSICIAN: Dr. Cat Higuera. CONSULTING AND INTERPRETING PHYSICIAN: Dr. Ryan Acevedo MD ELECTROENCEPHALOGRAPHIC EXAMINATION REPORT: INDICATION FOR EXAMINATION: This patient is a 52-year-old female with history of meningioma resection 4 years ago. Patient now with symptoms of headache and blackout spells. AGE: [age]. EEG FINDINGS: A routine 21 channel awake digital EEG recording was accomplished utilizing the 10-20 international system with bipolar and referential montages. The background activity in the most alert resting state consists of a low to medium amplitude, fairly well developed and well sustained 8-9 hertz activity over the posterior head regions. This posterior rhythm attenuates to eye opening. There is a small amount of low amplitude 18-20 Hz beta activity seen maximally over the anterior head regions. Muscle and movement artifact was observed on a few occasions during the tracing. During hyperventilation, the patient did begin crying and causing excessive muscle and movement artifact. No further activation was noted. Photic stimulation at flash frequencies of 2-30 Hz produced a good symmetrical occipital driving response. No epileptiform discharges were seen. IMPRESSION: This EEG is within normal limits for the patient's age. The EEG failed to reveal any focal, lateralized, or epileptiform abnormalities. Clinical correlation is recommended. MMODL / IJN: [id number] /
== END | disposition home or self-care (01) ==
LOC: NEUROMAIN 13:12
PROVIDERS: ATTEND Family Medicine
DX: R55 Syncope and collapse (principal)
CPT/HCPCS: 95816; 70496; 70498; Q9967

== ENCOUNTER → 2018-06-12 | Outpatient (CLI) | payer OTHER ==
--- NOTE | 2018-06-12 12:02 | US ---
EXAMINATION TYPE: US pelvis complete transvag DATE OF EXAM: 06/12/2018 COMPARISON: NONE CLINICAL HISTORY: N95.0 Post-menopausal bleeding. PMB x 1.5 months ago. Hx of tubal ligation, revers al then tubal ligation again. TECHNIQUE: Transvaginal (TV) and Transabdominal (TA) . Transabdominal sonographic images of the pel vis were acquired. Transvaginal sonographic images were medically necessary to better assess the fol lowing anatomy: Ovaries Date of LMP: PM, E1 EXAM MEASUREMENTS: Uterus: 8.8 x 6.0 x 4.2 cm Endometrial Stripe: 1.5 cm Right Ovary: 2.1 x 1.1 x 1.2 cm Left Ovary: 2.4 x 1.4 x 1.3 cm 1. Uterus: Anteverted Heterogenous. 2. Endometrium: Thickened. Heterogenous. Hyperechoic lesion with vascular flow- 0.5, possible poly p. 3. Right Ovary: wnl 4. Left Ovary: wnl 5. Bilateral Adnexa: wnl 6. Posterior cul-de-sac: no free fluid Cervix- nabothian cysts IMPRESSION: 1. Thickened and heterogenous endometrium. Consider hysteroscopy.
--- NOTE | 2018-06-12 12:53 | US ---
EXAMINATION TYPE: US abdomen complete DATE OF EXAM: 06/12/2018 COMPARISON: NONE CLINICAL HISTORY: N95.0 Post-menopausal bleeding. NPO. GB removed 2012. No pain EXAM MEASUREMENTS: Liver Length: 15.4 cm CBD: cm CHD: Spleen: 9.8 cm Right Kidney: 11.5 x 5.0 x 4.2 cm Left Kidney: 12.4 x 5.6 x 6.0 cm Pancreas: Tail obscured by overlying bowel gas Liver: wnl Gallbladder: Surgically absent Evidence for sonographic Huggins's sign: neg CBD: wnl CHD: wnl Spleen: wnl Right Kidney: wnl Left Kidney: wnl Upper IVC: wnl Abd Aorta: wnl The liver is homogenous. The intrahepatic portion of the IVC and proximal abdominal aorta are within normal limits. Common bile duct is unremarkable. The visualized portions of the pancreas are hayes ogenous. The spleen is unremarkable. Kidneys are symmetric and free of hydronephrosis. No renal le sions are seen. IMPRESSION: 1. No distinct abnormality appreciated.
== END | disposition home or self-care (01) ==
LOC: RADUSWWP 09:24
PROVIDERS: ATTEND Family Medicine
DX: R93.89 Abnormal findings on diagnostic imaging of other specified body structures (principal)
CPT/HCPCS: 76700; 76830; 76856

== ENCOUNTER → 2018-10-13 | Outpatient (CLI) | payer OTHER ==
--- NOTE | 2018-10-14 11:46 | MM ---
Reason for exam: screening (asymptomatic). Last mammogram was performed 1 year and 8 months ago. History: Patient is postmenopausal. Benign cyst aspiration of both breasts. Took hormonal contraceptives for 4 years. Physical Findings: A clinical breast exam by your physician is recommended on an annual basis and results should be correlated with mammographic findings. MG Screening Mammo w CAD Bilateral CC and MLO view(s) were taken. Prior study comparison: February 20, 2017, bilateral MG diagnostic mammo w CAD ELVI. The breast tissue is heterogeneously dense. This may lower the sensitivity of mammography. Bilateral vascular calcifications. No significant changes when compared with prior studies. ASSESSMENT: Negative, BI-RAD 1 RECOMMENDATION: Routine screening mammogram of both breasts in 1 year.
== END | disposition home or self-care (01) ==
LOC: RADMAMWWP 13:22
PROVIDERS: ATTEND Family Medicine
DX: Z12.31 Encounter for screening mammogram for malignant neoplasm of breast (principal)
CPT/HCPCS: 77067

== ENCOUNTER 2019-04-20 14:25 | Emergency (ER) | payer OTHER ==
[2019-04-20 14:32] VITALS: RESP 18; TEMP 97.7
[2019-04-20] MEDS ORDERED: SODIUM CHLORIDE 0.9% 1,000 ML IV ONE (14:56)
[2019-04-20] MEDS ORDERED: METOCLOPRAMIDE 5 MG/ML 2 ML VIAL IVP STA (14:56)
[2019-04-20] MEDS ORDERED: diphenhydrAMINE 50 MG/ML 1 ML VIAL IVP STA (14:56)
--- NOTE | 2019-04-20 15:09 | ED ---
Headache HPI - General Chief Complaint: Headache Stated Complaint: Headaches Time Seen by Provider: 04/20/19 14:40 Mode of arrival: ambulatory Limitations: no limitations - History of Present Illness Initial Comments: 53-year-old female with history of hypotension and meningioma presents emergency department for chief complaint of headache x 3 days. Patient states Friday she has had a headache she states that she has history of chronic headaches of her diagnosis of meningioma and 2014. Patient states procedure was performed by Dr. Carrero at [facility]. Patient states that she has had history of headaches since the surgery. And has been managing this pain sense with her primary provider using Maxalt. Patient states the past year and the headache frequency seems to be increasing she states she has headaches weekly. Patient states she usually vomits when she experiences her migraines. Patient states that since Friday she has been unable to abort the headache with medication, Maxol-she states it has never worked, denies taking any other medications in attempt in relief of headache. She states the WILHELM began while at work and is a pressure like pain, 10/10 diffuse. Patient states she has a known cervical disc herniation and at times experience b/l UE tingling. Patient states she has experienced this in the past 4 days, but denies any increase, weakness, sensation loss of injury to the neck. Patient sates that she also has had a sore throat and felted fevered yesterday. Denies diarrhea, neck stiffness, sensitivity to light. Denies weakness of the UE or Le, speech changes, visual changes. Remaining ROS (-). Upon arrival patient appears well no acute distress. Afebrile. - Related Data Home Medications Medication Instructions Recorded Confirmed Citalopram Hydrobromide [Celexa 20 mg PO DAILY 08/01/17 04/20/19 Oral Soln] Rizatriptan Benzoate [Maxalt BAKER PASTRY] 5 mg PO BID PRN 08/01/17 04/20/19 Citalopram Hydrobromide [Celexa 10 mg PO HS 04/20/19 04/20/19 Oral Soln] Allergies Allergy/AdvReac Type Severity Reaction Status Date / Time latex Allergy Swelling Verified 04/20/19 15:31 tomato AdvReac Rash/Hives Verified 04/20/19 15:41 Review of Systems ROS Statement: Those systems with pertinent positive or pertinent negative responses have been documented in the HPI. ROS Other: All systems not noted in ROS Statement are negative. Past Medical History Past Medical History: No Reported History Additional Past Medical History / Comment(s): hypotensive History of Any Multi-Drug Resistant Organisms: None Reported Past Surgical History: Cholecystectomy, Tonsillectomy, Tubal Ligation Additional Past Surgical History / Comment(s): brain surgery- tumor removed Past Psychological History: Anxiety, Depression Smoking Status: Current every day smoker Past Alcohol Use History: None Reported Past Drug Use History: None Reported General Exam - General Exam Comments Initial Comments: General: The patient is awake and alert, in no distress, and does not appear acutely ill. Eye: +3 mm pupils are equal, round and reactive to light, extra-ocular movements are intact. No nystagmus. There is normal conjunctiva bilaterally. No signs of icterus. No photophobia Ears, nose, mouth and throat: There are moist mucous membranes and no oral lesions. Oropharynx was not erythematous there is no tonsillar enlargement exudates or lesions. Uvula midline. Tympanic membranes are not erythematous or is no effusions bulging or retraction. No tenderness to palpation of the mastoid. No anterior cervical lymphadenopathy. No tripoding, no drooling. Neck: The neck is supple, there is no tenderness or JVD. No nuchal rigidity negative Brudzinski and Kernig Cardiovascular: There is a regular rate and rhythm. No murmur, rub or gallop is appreciated. Respiratory: Lungs are clear to auscultation, respirations are non-labored, breath sounds are equal. No wheezes, stridor, rales, or rhonchi. No retractions or abdominal breathing. Gastrointestinal: Soft, non-distended, non-tender abdomen without masses or organomegaly noted. There is no rebound or guarding present. Bowel sounds are unremarkable. Musculoskeletal: Normal ROM, no tenderness. Strength 5/5. Sensation intact. Radial pulses equal bilaterally 2+. Neurological: A&O x 3. CN II-XII intact, memory intact to immediately, intermediate and group home recall. Able to follow simple verbal. Able to name a common object (pen). High quality, labial (pa) and lingual (la) speech. Low quality posterior pharynx/larynx (ga) voice sounds. Able to express general knowledge (days in a week). No hemineglect or inattention noted. Finger agnosia (-) and spatially oriented (identified L index finger touched R shoulder with L index finger). Light touch and temperature sensation present over the face, chest, abdomen, back, UE bilaterally, and LE bilaterally. Able to localize point during point localization b/l and extinction. No visible bulk atrophy, hypertrophy, fasciculations, or myoclonus of the UE or LE b/l. Full PROM in UE and LE b/l. Bilateral muscle strength 5/5 for the following muscles: deltoid, biceps, triceps, brachioradialis, wrist extensors/flexor, hip flexor, hip abductors/adductors, hamstrings, quadriceps, feet dorsiflexors/plantar flexors. Finger to nose, finger to the examiners finger, and heel to hernandez coordinated and accurate b/l. Coordinated and even demonstration of hand flip, finger to thumb, and toe tap b/l. Gait is coordinated and even in stride with tandem.(-) pronator drift. No nuchal rigidity. (-) Brudzinskis and Kernig signs. Skin: Skin is warm and dry and no rashes or lesions are noted. No extremity edema Psychiatric: Cooperative Limitations: no limitations Course Vital Signs 04/20/19 14:29 Temperature 97.7 F Pulse Rate 70 Respiratory 18 Rate Blood Pressure 105/70 O2 Sat by Pulse 99 Oximetry Medical Decision Making - Medical Decision Making Very well-appearing 53-year-old female presenting for headache. History of chronic headaches status post meningioma removal. Patient manages Primary care provider. States her chronic headache medication does not work. Headache 2 days. No focal neurological deficits on examination. Patient CT of brain negative obtained due to history of brain mass. Patient labs stable. Appears well relief with toradol and morphine patient requesting discharge after multiple reevaluations. Discussed case with Dr. Leos. Patient instructed to e stablish more assessable neurology f/u care as she was discharged from [facility] and PCP f/u. Agreeable> return parameters discussed, and patient discharged appearing well. - Lab Data Result diagrams: 04/20/19 15:10 04/20/19 15:10 Lab Results 04/20/19 04/20/19 04/20/19 Range/Units 15:10 15:10 15:10 WBC 5.2 (3.8-10.6) k/uL RBC 4.30 (3.80-5.40) m/uL Hgb 13.4 (11.4-16.0) gm/dL Hct 41.5 (34.0-46.0) % MCV 96.4 (80.0-100.0) fL MCH 31.1 (25.0-35.0) pg MCHC 32.2 (31.0-37.0) g/dL RDW 13.2 (11.5-15.5) % Plt Count 203 (150-450) k/uL Neutrophils % 67 % Lymphocytes % 24 % Monocytes % 4 % Eosinophils % 2 % Basophils % 1 % Neutrophils # 3.5 (1.3-7.7) k/uL Lymphocytes # 1.2 (1.0-4.8) k/uL Monocytes # 0.2 (0-1.0) k/uL Eosinophils # 0.1 (0-0.7) k/uL Basophils # 0.1 (0-0.2) k/uL Sodium 140 (137-145) mmol/L Potassium 4.4 (3.5-5.1) mmol/L Chloride 110 H (98-107) mmol/L Carbon Dioxide 27 (22-30) mmol/L Anion Gap 3 mmol/L BUN 13 (7-17) mg/dL Creatinine 0.66 (0.52-1.04) mg/dL Est GFR (CKD-EPI)AfAm >90 (>60 ml/min/1.73 sqM) Est GFR (CKD-EPI)NonAf >90 (>60 ml/min/1.73 sqM) Glucose 94 (74-99) mg/dL Calcium 9.1 (8.4-10.2) mg/dL Total Bilirubin 0.3 (0.2-1.3) mg/dL AST 26 (14-36) U/L ALT 31 (9-52) U/L Alkaline Phosphatase 57 (38-126) U/L Total Protein 6.2 L (6.3-8.2) g/dL Albumin 3.7 (3.5-5.0) g/dL Influenza Type A RNA Not Detected (Not Detectd) Influenza Type B (PCR) Not Detected (Not Detectd) Group A Strep Rapid (Negative) 04/20/19 Range/Units 15:27 WBC (3.8-10.6) k/uL RBC (3.80-5.40) m/uL Hgb (11.4-16.0) gm/dL Hct (34.0-46.0) % MCV (80.0-100.0) fL MCH (25.0-35.0) pg MCHC (31.0-37.0) g/dL RDW (11.5-15.5) % Plt Count (150-450) k/uL Neutrophils % % Lymphocytes % % Monocytes % % Eosinophils % % Basophils % % Neutrophils # (1.3-7.7) k/uL Lymphocytes # (1.0-4.8) k/uL Monocytes # (0-1.0) k/uL Eosinophils # (0-0.7) k/uL Basophils # (0-0.2) k/uL Sodium (137-145) mmol/L Potassium (3.5-5.1) mmol/L Chloride (98-107) mmol/L Carbon Dioxide (22-30) mmol/L Anion Gap mmol/L BUN (7-17) mg/dL Creatinine (0.52-1.04) mg/dL Est GFR (CKD-EPI)AfAm (>60 ml/min/1.73 sqM) Est GFR (CKD-EPI)NonAf (>60 ml/min/1.73 sqM) Glucose (74-99) mg/dL Calcium (8.4-10.2) mg/dL Total Bilirubin (0.2-1.3) mg/dL AST (14-36) U/L ALT (9-52) U/L Alkaline Phosphatase (38-126) U/L Total Protein (6.3-8.2) g/dL Albumin (3.5-5.0) g/dL Influenza Type A RNA (Not Detectd) Influenza Type B (PCR) (Not Detectd) Group A Strep Rapid Negative (Negative) Disposition Clinical Impression: Headache, Chronic headaches, Hx of resection of meningioma Disposition: HOME SELF-CARE Condition: Good Instructions (If sedation given, give patient instructions): Acute Headache (ED) Additional Instructions: Please use medication as discussed. Please follow-up with family doctor in the next 2 days, recommend establishing care with neurologist, repeat MRI. Please return to emergency room if the symptoms increase or worsen or for any other concerns. Is patient prescribed a controlled substance at d/c from ED?: No Referrals: Cat Higuera MD [Primary Care Provider] - 1-2 days Time of Disposition: 16:36
--- NOTE | 2019-04-20 15:17 | CT ---
EXAMINATION TYPE: CT brain wo con DATE OF EXAM: 04/20/2019 COMPARISON: 08/01/2017 HISTORY: Prior Surgery. Headache for [address] DLP: 1099.4 mGycm Automated exposure control for dose reduction was used. FINDINGS: Posterior calvarium shows postop change, there is a flap which shows a normal position. There is no h emorrhage or hydrocephalus present. Paranasal sinuses and mastoid air cells as visualized are normal. The orbits show a symmetric appearance as visualized. Stable partially calcified less than 1 cm nodu le in the subcutaneous tissues adjacent to the left parietal bone IMPRESSION: POSTSURGICAL CHANGE WITH NO ACUTE HEMORRHAGE OR MASS EFFECT. IF SYMPTOMS ARE WORSENING OR PERSISTENT CORRELATE WITH MRI.
[2019-04-20] MEDS ORDERED: KETOROLAC 30 MG/ML 1 ML VIAL IVP STA (15:19)
[2019-04-20 15:23] LABS: Basophils # (A) 0.1 k/uL (0-0.2); Basophils % (A) 1 %; Eosinophils # (A) 0.1 k/uL (0-0.7); Eosinophils % (A) 2 %; HCT 41.5 % (34.0-46.0); HGB 13.4 gm/dL (11.4-16.0); Lymphocytes # (A) 1.2 k/uL (1.0-4.8); Lymphocytes % (A) 24 %; MCH 31.1 pg (25.0-35.0); MCHC 32.2 g/dL (31.0-37.0); MCV 96.4 fL (80.0-100.0); Mean Platelet Volume 7.9; Monocytes # (A) 0.2 k/uL (0-1.0); Monocytes % (A) 4 %; Neutrophils # (A) 3.5 k/uL (1.3-7.7); Neutrophils % (A) 67 %; Platelet Count 203 k/uL (150-450); RDW 13.2 % (11.5-15.5); WBC 5.2 k/uL (3.8-10.6)
[2019-04-20 15:37] LABS: ALT 31 U/L (9-52); AST 26 U/L (14-36); African American GFR (CKD) >90 (>60 ml/min/1.73 sqM); Albumin 3.7 g/dL (3.5-5.0); Alkaline Phosphatase 57 U/L (38-126); Anion Gap 3 mmol/L; Blood Urea Nitrogen 13 mg/dL (7-17); Calcium 9.1 mg/dL (8.4-10.2); Carbon Dioxide 27 mmol/L (22-30); Chloride 110 mmol/L (98-107); Glucose 94 mg/dL (74-99); Potassium 4.4 mmol/L (3.5-5.1); Sodium 140 mmol/L (137-145); Total Bilirubin 0.3 mg/dL (0.2-1.3); Total Protein 6.2 g/dL (6.3-8.2)
[2019-04-20] MEDS ORDERED: MORPHINE SULFATE 4 MG/ML SYRINGE IVP STA (15:51)
[2019-04-20 16:49] VITALS: BP 91/59; PULSE 59
== END 2019-04-20 16:49 | disposition home or self-care (01) ==
LOC: EC 14:25
DX: R51 Headache (principal); F41.9 Anxiety disorder, unspecified; F32.9 Major depressive disorder, single episode, unspecified; F17.200 Nicotine dependence, unspecified, uncomplicated; Z79.899 Other long term (current) drug therapy; Z91.040 Latex allergy status; Z91.018 Allergy to other foods; Z98.890 Other specified postprocedural states
CPT/HCPCS: 36415; 80053; 85025; 87081; 87430; 87502; 70450; 99284; 96374; 96375 ×3; 96361; J2270; J1200; J2765; J1885

== ENCOUNTER → 2020-05-19 | Outpatient (CLI) | payer OTHER ==
--- NOTE | 2020-05-22 13:42 | MM ---
Reason for exam: screening (asymptomatic). Last mammogram was performed 1 year and 7 months ago. History: Patient is postmenopausal. Benign cyst aspiration of both breasts. Took hormonal contraceptives for 4 years. Physical Findings: A clinical breast exam by your physician is recommended on an annual basis and results should be correlated with mammographic findings. MG Screening Mammo w CAD Bilateral CC and MLO view(s) were taken. Prior study comparison: October 13, 2018, bilateral MG screening mammo w CAD. February 20, 2017, bilateral MG diagnostic mammo w CAD ELVI. The breast tissue is heterogeneously dense. This may lower the sensitivity of mammography. Finding #1: There is a new 4-5 mm circumscribed round mass located 6 cm from the nipple in the upper outer quadrant, posterior, middle position of the right breast. Finding #2: There are typically benign vascular, round calcifications in both breasts. New finding since October 13, 2018 and February 20, 2017. ASSESSMENT: Incomplete: need additional imaging evaluation, BI-RAD 0 RECOMMENDATION: Ultrasound of the right breast. [facility] will attempt to contact patient to return for ultrasound.
== END | disposition home or self-care (01) ==
LOC: RADMAMWWP 07:39
PROVIDERS: ATTEND Family Medicine
DX: Z12.31 Encounter for screening mammogram for malignant neoplasm of breast (principal)
CPT/HCPCS: 77067

== ENCOUNTER → 2020-06-19 | Outpatient (CLI) | payer OTHER ==
--- NOTE | 2020-06-19 10:28 | USB ---
Reason for exam: additional evaluation requested from abnormal screening. History: Patient is postmenopausal. Benign cyst aspiration of both breasts. Took hormonal contraceptives for 4 years. Physical Findings: Nurse did not find any significant physical abnormalities on exam. US Breast Workup Limited RT Right limited breast ultrasound including focal area of concern, retroareolar and axilla demonstrates a 5 x 4 x 5mm oval, cystic lesion at 10 o'clock, may correspond to the mammographic finding. Scanned 9-12 o'clock. These results were verbally communicated with the patient and result sheet given to the patient on 06/19/20. ASSESSMENT: Probably benign, BI-RAD 3 RECOMMENDATION: Follow-up diagnostic mammogram of the right breast in 6 months.
== END | disposition home or self-care (01) ==
LOC: RADUSWWP 09:38
PROVIDERS: ATTEND Family Medicine
DX: R92.8 Other abnormal and inconclusive findings on diagnostic imaging of breast (principal)